=== PATIENT | male | born 1965 | race Asian ===

== ENCOUNTER 2021-04-15 15:55 | Inpatient (IN) | payer OTHER ==
[~2021-04-15] VITALS: Ht 167.6 cm; Wt 80.5 kg
[2021-04-15 15:55] VITALS: BP 135/98; TEMP 98.2
[2021-04-15 17:00] VITALS: BP 131/88
[2021-04-15 17:10] LABS: PLATELET COUNT 158 K/uL (142-355)
[2021-04-15 17:51] LABS: POTASSIUM 5.3 mmol/L (3.6-5.2)
[2021-04-15 17:59] LABS: PARTIAL THROMBOPLASTIN TIME 18.7 SECONDS (24.5-33.6)
[2021-04-15 18:00] VITALS: BP 130/71
[2021-04-15 19:00] VITALS: BP 125/67
[2021-04-15 20:00] VITALS: BP 133/73
[2021-04-15 23:55] VITALS: BP 130/72; TEMP 97.4
[2021-04-16 01:51] VITALS: BP 130/72; TEMP 97; Ht 167.6 cm; Wt 80.5 kg
[2021-04-16 01:58] LABS: POTASSIUM 4.4 mmol/L (3.6-5.2)
[2021-04-16 04:00] VITALS: BP 131/76; TEMP 98.5
[2021-04-16 06:01] LABS: POTASSIUM 4.2 mmol/L (3.6-5.2)
[2021-04-16 08:00] VITALS: BP 122/82; TEMP 98.2
[2021-04-16 09:30] LABS: POTASSIUM 4.2 mmol/L (3.6-5.2)
[2021-04-16] MEDS ORDERED: INSU300I SC (11:56)
[2021-04-16] MEDS ORDERED: METF500T PO (11:56)
[2021-04-16 12:00] VITALS: BP 107/72; TEMP 97.9
[2021-04-16 13:32] LABS: POTASSIUM 4.1 mmol/L (3.6-5.2)
== END 2021-04-16 13:45 | DRG 639 ==
LOC: ED 15:55 → MED/SURG 18:15
PROVIDERS: ADMIT Hospitalist; ATTEND Internal Medicine
DX: E11.65 Type 2 diabetes mellitus with hyperglycemia (principal); K21.9 Gastro-esophageal reflux disease without esophagitis; I10 Essential (primary) hypertension
CPT/HCPCS: 36415; 36600; 80048; 80053; 81000; 81002; 82550; 82805; 82948; 83880; 84484; 85027; 85610; 85730; 87635; 93005; 96360; 96361; 96375; 99284; J1650; J1815; J3490; U0003